=== PATIENT | female | born 1985 | race Caucasian/White ===

== ENCOUNTER → 2017-04-09 | Outpatient (CLI) | payer OTHER ==
[~2017-04-09] MED LIST: CIPRO500 MG PO; CLEOCIN300 MG PO; LORTAB 5-325 M1 EACH PO; METHADONE10 MG PO; METHADONE5 MG PO; Motrin PO; NAPROSYN500 MG PO; PERIDEX1 ML MM; ZOFRAN4 MG PO
== END | disposition home or self-care (01) ==
LOC: CDC 11:55
DX: R94.31 Abnormal electrocardiogram [ECG] [EKG] (principal)
CPT/HCPCS: 93000